=== PATIENT | male | born 1970 | race Caucasian/White ===

== ENCOUNTER 2016-07-25 06:49 | Emergency (ER) | payer OTHER ==
[~2016-07-25] VITALS: Ht 175.3 cm; Wt 86.2 kg
[~2016-07-25 06:49] MED LIST: BACTRIM DS 8001 TAB PO; BACTRIM DS TAB1 EACH PO; CLEOCIN HCL300 MG PO; KEFLEX500 M1 PO; KEFLEX500 MG PO; PERCOCET 325 MG1 TA2 PO
--- NOTE | 2016-07-25 07:49 | ED GI/GU/ABDOMINAL COMPLAINT ---
History of Present Illness General Chief Complaint: General Adult Stated Complaint: "?HIDLE HERNIA, HX HIDLE HERNIA" Source: patient, old records Exam Limitations: no limitations Vital Signs & Intake/Output Vital Signs & Intake/Output Vital Signs Date Time Temp Pulse Resp B/P Pulse O2 O2 Flow FiO2 Ox Delivery Rate 07/25 926 97.0 70 128/62 07/25 0835 97.0 78 20 144/82 96 Room Air 07/25 0709 96.5 84 18 151/90 97 Room Air Allergies Coded Allergies: No Known Allergies (10/16/15) Reconcile Medications No Known Home Medications Triage Note: 46 Y/O MALE C/O FEW WEEK HISTORY OF EPIGASTRIC PAIN; INTERMITTENT IN NATURE AND "IT COMES AND GOES BUT WHEN IT EAT IT FEELS LIKE THE FOOD GETS STUCK". PT STATES HE HAD A HX OF HIATAL HERNIA AND NISSON FUNDOPLICATION AND THIS "FEELS LIKE WHEN I WAS RECOVERING AND I WAS OVER ZEALOUS WITH EATING, THE FOOD WOULD GET STUCK". PT STATES HE CALLED DR VALLES BUT WAS UNABLE TO GET APPT UNTIL SATURDAY. DENIES OTHER COMPLAINTS. Triage Nurses Notes Reviewed? yes Onset: Gradual Duration: week(s): (2), intermittent, waxing and waning Timing: recent history Quality/Severity: aching Severity Numbers: 5 Location: epigastric Radiation: no radiation Activities at Onset: none Prior Abdominal Problems: similar symptoms (prior to hiatal hernia repair) No Modifying Factors: none Associated Symptoms: n/v x2 HPI: 46-year-old male history of asthma, hiatal hernia repair in 2013 with yohana fundoplicaton presents to the ER for evaluation complaining of 2 week history of gradual onset intermittent waxing and waning in intensity epigastric discomfort stating that he feels as though "food is getting stuck" the patient denies any competitions with the surgery up until 2 weeks ago. He denies any shortness of breath or difficulty swallowing. He denies pain currently there is no fever no chills. He states throughout the duration of his symptoms he has vomited twice denies nausea, no change in his bowel movements. He called his surgeon Dr. Valles or cannot get in to see him until next week. He denies history of abdominal surgeries otherwise. He denies tobacco or alcohol use no back pain the symptoms are nonradiating described as aching in her minute. There is no other abdominal pain no urinary symptoms no fever no chills. He is been using [id number] antacids without improvement. sx are not worse with eating or drinking. (FRIEDA LOPEZ) Past History Travel History Traveled to [place] past 21 day No Medical History Any Pertinent Medical History? 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 Psychosocial History What is your primary language Kazakh Tobacco Use: Never used Family History Hx Contributory? No (FRIEDA LOPEZ) Review of Systems Review of Systems Constitutional: Reports: see HPI. All Other Systems: Reviewed and Negative Comments Review of systems: See HPI, All other systems negative. Constitutional, no chills no fever, no malaise HEENT: No visual changes no sore throat no congestion Cardiovascular: No chest pain , no palpitation Skin, no jaundice no rashes, no change in skin Respiratory: No dyspnea no cough no sputum no hemoptysis GI: No nausea no vomiting, no diarrhea, no bloating/constipation : No dysuria Muscle skeletal: No joint pain, no back pain, no neck pain, Neurologic: No numbness , no headache Psych: No stress Heme/endocrine: No bruising no bleeding Immunology: No lymphadenopathy (FRIEDA LOPEZ) Physical Exam Physical Exam General Appearance: well developed/nourished, alert, awake Gastrointestinal: tenderness (epigastric) Comments: Well-developed well-nourished person in no acute distress HEENT: Normal EENT exam; PERRL, EOMI, HEAD is atraumatic. moist mucous membranes. Neck: Supple, normal range of motion Back: Nontender, no CVA tenderness. Full range of motion Cardiovascular: Regular rate and rhythms no murmurs rubs Respiratory: Chest nontender.There were no bony deformities, no asymmetry. No respiratory distress. Patient speaking in full complete sentences. Breath sounds clear to auscultation bilaterally: NO W/R/R Abdomen: Soft, epigastric tenderness to palpation no right upper quadrant tenderness negative Al sign nondistended, no appreciable organomegaly. Normal bowel sounds. No rebound/guarding, No appreciable enlargement of the abdominal aorta, No ascites. Extremity: No edema, full range of motion of extremities Neuro: Alert oriented x3, motor sensory normal. There were no obvious focal neurologic abnormalities. Skin: No appreciable rash on exposed skin, skin is warm and dry. No jaundice Psych: Mood and affect is normal, memory and judgment is normal. Core Measures ACS in differential dx? No Severe Sepsis Present: No Septic Shock Present: No (KIRSTIN CHRISTENSEN,FRIEDA) Progress Differential Diagnosis: AAA, appendicitis, biliary colic, bowel obstruction, colon cancer, diverticulitis, gastritis, hepatitis, hernia, inflamm bowel dis, pancreatitis, peptic ulcer, PUD/GERD, perforated viscous, SBO Plan of Care: Orders Procedure Date/time Status Saline Lock 07/25 754 Active TROPONIN LEVEL 07/25 754 Complete LIPASE 07/25 754 Complete COMPREHENSIVE METABOLIC PANEL 07/25 754 Complete CBC WITHOUT DIFFERENTIAL 07/25 754 Complete AMYLASE 07/25 754 Complete Laboratory Tests 07/25/16 0810: Anion Gap 8, Estimated GFR 55 L, BUN/Creatinine Ratio 10.7, Glucose 102 H, Calcium 9.8, Total Bilirubin 1.2, AST 25, ALT 33, Alkaline Phosphatase 71, Troponin I < 0.01, Total Protein 7.2, Albumin 3.9, Globulin 3.3, Albumin/ Globulin Ratio 1.2, Amylase 39, Lipase 88, CBC w Diff NO MAN DIFF REQ, RBC 5.55, MCV 84.4, MCH 28.4, RDW 14.3, MPV 8.5, Gran % 58.1, Lymphocytes % 22.9, Monocytes % 10.7 H, Eosinophils % 7.6 H, Basophils % 0.7, Absolute Granulocytes 3.4, Absolute Lymphocytes 1.4, Absolute Monocytes 0.6, Absolute Eosinophils 0.5, Absolute Basophils 0, PUBS MCHC 33.6 Patient denies any complaints at this time labs ordered CAT scan ordered case discussed with Dr. robb 07/25/2016 8:55:24 AM discussed the patient called his lab results to date pending CAT scan is again declining anything offered for pain as he denies any at this time patient's creatinine of 1.4 reviewed shows patient's previous kidney functions has been elevated in the past as well 07/25/2016 10:01:08 AM discussed with the patient at length all of his CT findings incidental findings need for close follow-up with his GI as well as surgery scheduled to see next Saturday. Patient is again denying any pain, I advised to continue the Prevacid, advised return anytime sooner with any concerns answered all his questions he feels comfortable to splint (KIRSTIN CHRISTENSEN,FRIEDA) Diagnostic Imaging: Viewed by Me: CT Scan. Discussed w/RAD: CT Scan. Radiology Impression: PATIENT: INDERJIT HODGES JR PRESENT AGE: 46 PATIENT ACCOUNT NO: [id number] : 70 LOCATION: [facility] ORDERING PHYSICIAN: FRIEDA CHRISTENSEN SERVICE DATE: 07/25/16 EXAM TYPE: CAT - CT ABD & PELVIS W IV CONTRAST EXAMINATION: CT ABDOMEN AND PELVIS WITH CONTRAST CLINICAL INFORMATION: Pancreatitis. Epigastric pain with hiatal hernia repair. COMPARISON: None TECHNIQUE: Multidetector volumetric imaging was performed of the abdomen and pelvis before and after the IV administration of 93 mL of Optiray 320 intravenous contrast. Sagittal and coronal reformatted images were obtained on the technologist's workstation. DLP: 469 mGy-cm. FINDINGS: LUNG BASES: The visualized lung bases are unremarkable. LIVER, GALLBLADDER, AND BILIARY TREE: The liver is normal in size, shape, and attenuation. No focal hepatic lesion or biliary ductal dilatation is present. The gallbladder is unremarkable with no evidence of radiopaque gallstones, gallbladder wall thickening, or obvious pericholecystic inflammatory changes. PANCREAS: Unremarkable. No evidence for pancreatitis. No pancreatic ductal dilatation. SPLEEN: Unremarkable. ADRENAL GLANDS: Unremarkable. KIDNEYS AND URETERS: 1.5 cm benign simple cyst in the lower pole of the right kidney. Multiple small 1 to 2 mm calcifications in both kidneys compatible small nonobstructing calculi. No hydronephrosis or hydroureter. BLADDER: Unremarkable. GASTROINTESTINAL TRACT: Appendix normal. Large bowel normal small bowel normal small hiatal hernia. Stomach otherwise normal. ABDOMINAL WALL: No significant hernia is appreciated. LYMPH NODES: Normal. VASCULAR: Minimal arterial calcification. PELVIC VISCERA: Unremarkable. OSSEOUS STRUCTURES: Unremarkable. IMPRESSION: No acute abnormality No evidence for pancreatitis. Benign simple cyst lower pole right kidney. Multiple small nonobstructing renal calculi. Small hiatal hernia. DICTATED BY: KAIT BURR MD DATE/TIME DICTATED:07/25/16911 SPEECH PATHOLOGY ASSISTANT: JV DATE/TIME TRANSCRIBED:07/25/16911 CONFIDENTIAL, DO NOT COPY WITHOUT APPROPRIATE AUTHORIZATION. <Electronically signed in Other Vendor System> SIGNED BY: KAIT BURR MD 07/25/16946 Initial ED EKG: none (FRIEDA LOPEZ) Departure Departure Time of Disposition: 956 Disposition: HOME OR SELF CARE Condition: Stable Clinical Impression Primary Impression: Hiatal hernia Secondary Impressions: Gastritis, Kidney stone, Renal cyst Referrals: REENA BANDA,MAURIZIO ERWIN MD,ANA M (PCP/Family) Additional Instructions: Follow-up with Dr. 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 Bullock diet, continue with Prevacid. Return to ER anytime sooner with any concerns. Departure Forms: Customer Survey General Discharge Information Prescriptions: Current Visit Scripts No Known Home Medications (FRIEDA LOPEZ) PA/RUSSIAN HISTORY PROFESSOR Co-Sign Statement Statement: ED Attending supervision documentation- [] I saw and evaluated the patient. I have also reviewed all the pertinent lab results and diagnostic results. I agree with the findings and the plan of care as documented in the PA's/RUSSIAN HISTORY PROFESSOR's documentation. x I have reviewed the ED Record and agree with the PA's/RUSSIAN HISTORY PROFESSOR's documentation. [] Additions or exceptions (if any) to the PAs/RUSSIAN HISTORY PROFESSOR's note and plan are summarized below: [] (GIUSEPPE BANDA,ROBERT)
[2016-07-25 08:18] LABS: ABSOLUTE BASOPHIL COUNT 0 /CUMM (0.0-0.2); ABSOLUTE EOSINOPHIL COUNT 0.5 /CUMM (0.0-0.7); ABSOLUTE GRANULOCYTE CT 3.4 /CUMM (1.4-6.5); ABSOLUTE LYMPH COUNT 1.4 /CUMM (1.2-3.4); ABSOLUTE MONOCYTE COUNT 0.6 /CUMM (0.10-0.60); BASOPHIL % 0.7 % (0.0-2.0); EOSINOPHIL % 7.6 % (0-5); GRANULOCYTE % 58.1 % (42.2-75.2); HEMATOCRIT 46.8 % (42-52); MEAN CORPUSCULAR HGB 28.4 PG (27.0-31.0); MEAN CORPUSCULAR HGB CONC 33.6 G/DL (33.0-37.0); MEAN CORPUSCULAR VOLUME 84.4 FL (80.0-94.0); MEAN PLATELET VOLUME 8.5 FL (7.4-10.4); PLATELET COUNT 190 /CUMM (130-400); RBC DISTRIBUTION WIDTH 14.3 % (11.5-14.5); RED BLOOD CELL CT 5.55 /CUMM (4.70-6.10); WHITE BLOOD CELL COUNT 5.9 /CUMM (4.8-10.8)
[2016-07-25 09:27] VITALS: BP 128/62
--- NOTE | 2016-07-25 09:47 | CT SCAN REPORT ---
EXAMINATION: CT ABDOMEN AND PELVIS WITH CONTRAST CLINICAL INFORMATION: Pancreatitis. Epigastric pain with hiatal hernia repair. COMPARISON: None TECHNIQUE: Multidetector volumetric imaging was performed of the abdomen and pelvis before and after the IV administration of 93 mL of Optiray 320 intravenous contrast. Sagittal and coronal reformatted images were obtained on the technologist's workstation. DLP: 469 mGy-cm. FINDINGS: LUNG BASES: The visualized lung bases are unremarkable. LIVER, GALLBLADDER, AND BILIARY TREE: The liver is normal in size, shape, and attenuation. No focal hepatic lesion or biliary ductal dilatation is present. The gallbladder is unremarkable with no evidence of radiopaque gallstones, gallbladder wall thickening, or obvious pericholecystic inflammatory changes. PANCREAS: Unremarkable. No evidence for pancreatitis. No pancreatic ductal dilatation. SPLEEN: Unremarkable. ADRENAL GLANDS: Unremarkable. KIDNEYS AND URETERS: 1.5 cm benign simple cyst in the lower pole of the right kidney. Multiple small 1 to 2 mm calcifications in both kidneys compatible small nonobstructing calculi. No hydronephrosis or hydroureter. BLADDER: Unremarkable. GASTROINTESTINAL TRACT: Appendix normal. Large bowel normal small bowel normal small hiatal hernia. Stomach otherwise normal. ABDOMINAL WALL: No significant hernia is appreciated. LYMPH NODES: Normal. VASCULAR: Minimal arterial calcification. PELVIC VISCERA: Unremarkable. OSSEOUS STRUCTURES: Unremarkable. IMPRESSION: No acute abnormality No evidence for pancreatitis. Benign simple cyst lower pole right kidney. Multiple small nonobstructing renal calculi. Small hiatal hernia.
== END 2016-07-25 09:57 ==
LOC: ERH 06:49
PROVIDERS: Physician Assistant Medical
DX: K44.9 Diaphragmatic hernia without obstruction or gangrene (principal); K29.70 Gastritis, unspecified, without bleeding; N20.0 Calculus of kidney; N28.1 Cyst of kidney, acquired
CPT/HCPCS: 74177; Q9965

== ENCOUNTER 2016-08-15 03:29 | Inpatient (IN) | payer OTHER ==
[~2016-08-15] VITALS: Ht 175.3 cm; Wt 88.5 kg
--- NOTE | 2016-08-15 18:59 | Operative Report ---
Operative/Inv Procedure Report Surgery Date: 08/15/16 Name of Procedure: Laparoscopic converted to open redo-hiatal hernia repair with Yohana fundoplication Pre-Operative Diagnosis: Recurrent hiatal hernia Post-Operative Diagnosis: Same Failed Yohana Estimated Blood Loss: 250 Surgeon/Educational Director: REENA BANDA,MAURIZIO Ramos/Tera Lei MD Anesthesia: general endotracheal tube Operative Indication: 46 showed male presents with recurrent severe GERD with regurgitation unresponsive to medical management. He had prior laparoscopic hiatal hernia repair with Yohana fundoplication about 2 years ago. Recent imaging shows recurrence of his hiatal hernia. He requests repair Operative/Procedure Note Note: After consent is brought to the operating room laid supine. Gen. anesthesia was obtained his placed in lithotomy position. His abdomen was prepped and draped. Skin above the umbilicus was after local anesthesia and a transverse incision made through pre-existing scar. We came down the fascia and incised it sharply. Stay sutures were placed and a blunt Jackson port was placed. The peritoneum was achieved. For, 5 mm ports were placed in the right upper quadrant epigastrium and left upper quadrant after local anesthesia instilled under direct vision the camera. There were omental adhesions to the anterior abdominal wall into the liver which were taken down with Sonicision device. A self-retaining liver retractor was placed in right upper quadrant. The hiatus was fused. There were numerous dense adhesions. We began or dissection on the right crura but this was deemed to be quite difficult due to the severe adhesive disease there. I could not identify the right jo ann. So I went laterally and got the left jo ann. We took down some adhesions with Sonicision and saw what appeared to be the crura were it met the Yohana. However there wasn't really an intact Yohana that we could see. So, worked back and forth until we mobilized the area little bit. Eventually through painstaking dissection I was able to get through what appeared to be the GE junction. We placed a umbilical tape around that area and tied to itself to assist in retraction. We still couldn't identify the right jo ann. This limited the laparoscopic portion the case significantly. We then identified what appeared to be the fundus of the stomach that was herniating up into the chest. Was retracted inferiorly. We then realized that the umbilical tape actually went between the fundus and the esophagus. I attempted to dissect the fundus off of the jo ann. In doing so a small hole in the stomach was made. Continue dissection and as we did so the hole just lengthen more and more. At this point it seemed that laparoscopic repair would be futile. So I converted to open. A midline incision was made sharply and subcutaneous tissues tissues were dissected with cautery. Ardon retractor was placed. Wasn't much easier doing an open but at least I could palpate tissues. There was circumferential adhesions at the GE junction which taken down with cautery. We then got [place] drain around the proper esophagus. At this point the fundus had been completely reduced. In order to repair the hole at the take down the failed Yohana. This was fairly difficult as there were numerous adhesions of the fundus to the posterior esophagus. These were taken down with cautery. Also mobilized the greater curvature to allow better mobilization of the hiatus. Finally was able to deliver the fundus back to the left side. Hole was then closed with a running 3-0 Vicryl suture in a Lembert fashion. At this point we expect the hiatus. The hiatus was really pretty tight and couldn't be closed much more than hours he was so we left that alone. I was afraid was be too tight. 5 try to imbricated even more the majority of the failure of his symptoms was related to what appeared to be failure of the Yohana fundoplication. We reused the fundus crated at Yohana fundoplication and in doing so was able to wrap the gastrotomy repair site on the inside as to buttress it against the esophagus. This was accomplished with 3 interrupted 2-0 Vicryl sutures, 2 of which incorporated the anterior portion of the esophagus. Nasogastric tube was then placed down in the stomach. Epigastric region was irrigated normal saline. I closed the fascia with 0 Maxon sutures in a running fashion. Skin incisions closed with curt. Sterile dressings were applied. Sponge and needle counts are correct. CC: RIP BANDA,ANA M
[2016-08-15 20:24] VITALS: BP 126/70
--- NOTE | 2016-08-15 20:30 | NUR ---
NSG NOTE: RECEIVED PT FROM PACU. PT AWAKE, A/OX3, ON 2L NC, ROOM AIR @ BASELINE, NGT TO L NARE TO LWS, BLOODY OUTPUT NOTED IN TUBING, IV SITE INTACT WITH IVF INFUSING PER ORDER, MIDLINE ABD DSG INTACT WITH SCANT BLOODY DRAINAGE NOTED AND MARKED, 3 SM BANDAIDS ALSO TO ABD WITH SCANT DRAINAGE, ABD SOFT AND DISTENDED, ALPS IN PLACE, PT NPO, -FLATUS, ABSENT BS, PT DENIES PAIN, PT ORIENTED TO ROOM AND CALL GRAVES WITHIN REACH. WILL MONITOR.
--- NOTE | 2016-08-15 22:49 | Admission Core Measures ---
Acute Coronary Syndrome Inclusion Criteria ACS Diagnosis No Inpatient Core Measures LDL Reminder: If No, please order W/I first 24hr of stay Congestive Heart Failure Inclusion Criteria CHF Diagnosis No Cerebrovascular accident Inclusion Criteria CVA/TIA Diagnosis No Inpatient Core Measures Bedside Swallow Eval Reminder: If BSE failed, place ST order Antithrombotic Reminder: Order Antithrombotic Medication by end of day 2 Antithrombotic Reminder: Document Reason Antithrombotic Not ordered by end of day 2 AFIB/Flutter Reminder: If Present, add to problem list AFIB/Flutter Reminder: Order Anticoag Medication for pts with AFIB/Flutter Atherosclerosis Reminder: If Present, add to problem list LDL Reminder: If No, please order W/I first 24hr of stay PT Order Reminder: If No, please order Venous thromboembolism Inpatient Core Measures VTE Risk Factors: Age > 40, [facility] prophylaxis d/t No contraindications No VTE Pharm Prophylaxis d/t No contraindications Inclusion Criteria - Per Current guidelines, there needs to be overlap - treatment for the first 5 days of Warfarin therapy. - Parenteral Anticoagulation (IV or SC) needs to be - given along with Warfarin therapy. VTE Diagnosis No VTE Type NONE VTE Confirmed by (Test) NONE Problem List As ranked by this Provider includes Assessment & Plan 1. Status post Yohana fundoplication (without gastrostomy tube) procedure HOME MEDS Home Med List Hydrocodone/Acetaminophen (Hycet 7.5 MG-325 MG/15 Ml Soln) 7.5 MG-325 MG/15 ML SOLUTION 15-30 ML PO Q4-6H PRN PAIN
--- NOTE | 2016-08-15 22:49 | PN- General Surgery ---
Subjective Subjective: Postop check Patient is now postoperative day #0 status post revision of hiatal hernia repair. He reports no major complaints at this time. He admits to some mild discomfort, which is reasonably controlled. His biggest complaint is irritation of the NG tube and Hopson, both of which are relatively tolerable. Otherwise denies nausea, headache, dizziness, chest pain, shortness breath. No flatus as of yet. Objective Vital Signs and I&Os Vital Signs Date Time Temp Pulse Resp B/P Pulse O2 O2 Flow FiO2 Ox Delivery Rate 08/16 2023 97.7 94 18 126/70 98 Nasal 2.0L Cannula 08/15 1954 Nasal 2.0L Cannula Intake & Output 08/16 0800 08/16 0000 08/15 1600 08/15 0800 08/15 0000 08/14 1600 Intake Total Output Total Balance Patient 195 lb Weight Physical Exam: Gen.: Patient is resting, but easily arousable. No acute distress. Cardiac: Regular Pulmonary: Lungs are clear bilaterally. Abdomen: Soft and moderately distended. Midline dressing contains a few small areas of blood, but no leakage outside of the dressing border. There is mild cuate-incisional tenderness, which is expected. No bowel sounds were heard as of yet. Extremities: No significant lower extremity edema or calf tenderness are appreciated. Assessment/Plan Assessment/Plan Patient is a 46-year-old male, who is now POD #0 s/p laparoscopic converted to open revision hiatal hernia repair. Plan: -Continue nothing by mouth with NG tube to low wall suction. Continues Chloraseptic spray for NGT discomfort. -IV fluids at 125 per hour. Keep Hopson catheter in overnight for I's and O's. -CBC and electrolytes in the morning. -Pain control with intermittent Dilaudid as needed. -Zofran can be used if needed for nausea. -Subcutaneous heparin and Alps for DVT prophylaxis. -Prontonix for GI prophylaxis. -Plan for Gastrografin swallow in the morning to assess for a leak due to extensive dissection of adhesions intraoperatively. Core Measures/Miscellaneous Hopson Catheter Date In: 08/15/16 Still Needed? Yes Venous Thromboembolism VTE Risk Factors: Age > 40, Surgery VTE Contraindications: No Contraindications VTE Diagnosis: No Beta Taras Is Beta Taras a Home Med? No Antibiotics Is Patient on Antibiotics? Yes If Yes: prophylaxis
[2016-08-16 01:38] VITALS: BP 140/80
--- NOTE | 2016-08-16 02:17 | NUR ---
PT C/O ITCHING ALL OVER. NO RASH NOTED. PER PT THIS HAS HAPPENED IN THE PAST WITH PAIN MEDICATION AND WAS GIVEN ANTIHISTIMINES. SURGICAL AMPARO MARS NOTIFIED. ORDER RECEIVED FOR IV BENADRYL. WILL MEDICATE PER ORDERS.
[2016-08-16 06:56] VITALS: BP 110/80
--- NOTE | 2016-08-16 07:27 | PN- General Surgery ---
Surgical Brief Attending Note Brief Attending Note: Patient is stable following open redo Yohana fundoplication. Awaiting Gastrografin swallow. If no evidence of leak, his NG tube can be removed and he can be started on a fundoplication stage I diet. Hopson catheter can be removed when his NG out
[2016-08-16 07:57] LABS: ABSOLUTE BASOPHIL COUNT 0 /CUMM (0.0-0.2); ABSOLUTE EOSINOPHIL COUNT 0 /CUMM (0.0-0.7); ABSOLUTE GRANULOCYTE CT 15.4 /CUMM (1.4-6.5); ABSOLUTE LYMPH COUNT 0.8 /CUMM (1.2-3.4); ABSOLUTE MONOCYTE COUNT 1.6 /CUMM (0.10-0.60); BASOPHIL % 0 % (0.0-2.0); EOSINOPHIL % 0 % (0-5); GRANULOCYTE % 86.6 % (42.2-75.2); HEMATOCRIT 42.1 % (42-52); MEAN CORPUSCULAR HGB 28.3 PG (27.0-31.0); MEAN CORPUSCULAR HGB CONC 32.8 G/DL (33.0-37.0); MEAN CORPUSCULAR VOLUME 86.4 FL (80.0-94.0); MEAN PLATELET VOLUME 9.8 FL (7.4-10.4); PLATELET COUNT 134 /CUMM (130-400); RBC DISTRIBUTION WIDTH 14.6 % (11.5-14.5); RED BLOOD CELL CT 4.87 /CUMM (4.70-6.10)
[2016-08-16 09:58] LABS: WHITE BLOOD CELL COUNT 17.7 /CUMM (4.8-10.8)
--- NOTE | 2016-08-16 11:02 | RADIOLOGY REPORT ---
EXAMINATION: XR GASTROGRAFIN SWALLOW CLINICAL INFORMATION: Status post hiatal hernia revision surgery on 08/14/2016. Evaluate for contrast leak. COMPARISON: Barium swallow from 08/03/2016. TECHNIQUE: Multiple spot fluoroscopy images of the esophagus and upper abdomen were acquired during oral intake of 60 mL of a 50% dilution of Gastrografin contrast material. FINDINGS: The preprocedure KUB shows the tip of the NG tube to be located at the gastric body. Skin curt project over the upper abdomen. Atelectasis is present in the medial left lower lobe. With oral intake of Gastrografin contrast material, there was no evidence of contrast leakage from the esophagus or proximal stomach. The patient was rolled into decubitus positions and there was normal emptying of contrast from the stomach into the normal duodenum. No evidence of a residual hiatal hernia. FLUOROSCOPY TIME: 1 minute, 5 seconds NUMBER OF IMAGES: 16 IMPRESSION: Status post hiatal hernia repair. NG tube in satisfactory position, its tip located in the gastric body. No evidence of recurrent hernia or postoperative contrast leakage.
[2016-08-16 14:43] VITALS: BP 120/80
[2016-08-16 23:01] VITALS: BP 128/87
--- NOTE | 2016-08-17 07:21 | PN- General Surgery ---
See Addendum Subjective Subjective: POD #2 s/p lap converted to open revision of hiatal hernia. Resting comfortably in bed. No flatus or BM yet. Ambulating well, voiding spontaneously. Tolerating fundoplication diet stage 1 without N/V. No F/C, CP/SOB. Objective Vital Signs and I&Os Vital Signs Date Time Temp Pulse Resp B/P Pulse O2 O2 Flow FiO2 Ox Delivery Rate 08/16 2301 99.0 93 20 128/87 93 Room Air 08/16 1602 96 Room Air Room Air 08/16 1559 18 96 Room Air Room Air 08/16 1443 98.6 86 18 120/80 96 Nasal 2.0L Cannula Intake & Output 08/17 0800 08/17 0000 08/16 1600 08/16 0808/16 0000 08/15 1600 Intake Total 705 1280 1000 Output Total 1750 1850 1750 500 Balance -1045 -570 -750 -500 Intake, IV 516 549 5568 Intake, Oral 480 480 Output, 200 Gastric Drainage Output, Urine 1750 1850 1550 500 Patient 195 lb Weight Physical Exam: Gen: AAox3 in NAD Cor: S1+S2+ Lungs: CTA svetlana Abd: incisional bandages C/D/I, removed. Midline and port incision intact with curt. No drainage or surrounding erythema noted. Abdomen nontender to palpation, non distended. +BS x4 Ext: no edema or calf tenderness to svetlana lower extremities. Current Medications: Current Medications Sig/Virgilio Start time Last Medication Dose Route Stop Time Status Admin Dextrose/Sodium 1,000 ML .[id number] 08/16 1999 DC 08/16 Chloride IV 0833 Diphenhydramine HCl 25 MG Q4P PRN 08/16 0230 AC 08/17 IV 0733 Heparin Sodium 5,000 UNIT Q8 08/15 2200 AC 08/17 (Porcine) SC 0657 Hydromorphone HCl 1 MG Q4P PRN 08/16 1999 AC 08/17 IV 0733 Hydromorphone HCl 0.5 MG Q4P PRN 08/16 1999 AC 08/15 IV 2312 Ondansetron HCl 4 MG Q6P PRN 08/16 1999 AC IV Pantoprazole Sodium 40 MG DAILY 08/16 1000 AC 08/16 IV 0834 Phenol 2 SPRAY Q2P PRN 08/16 0030 AC 08/16 EXT 0143 Results Last 48 Hours of Labs: Laboratory Tests 08/16 0614 Chemistry Sodium (137 - 145 mmol/L) 136 L Potassium (3.5 - 5.1 mmol/L) 5.0 Chloride (98 - 107 mmol/L) 101 Carbon Dioxide (22 - 30 mmol/L) 25 Anion Gap (5 - 16) 9 BUN (9 - 20 mg/dL) 17 Creatinine (0.7 - 1.2 mg/dL) 1.4 H Estimated GFR (>60 ml/min) 55 L BUN/Creatinine Ratio (7 - 25 %) 12.1 Hematology CBC w Diff NO MAN DIFF REQ WBC (4.8 - 10.8 /CUMM) 17.7 H RBC (4.70 - 6.10 /CUMM) 4.87 Hgb (14.0 - 18.0 G/DL) 13.8 L Hct (42 - 52 %) 42.1 MCV (80.0 - 94.0 FL) 86.4 MCH (27.0 - 31.0 PG) 28.3 RDW (11.5 - 14.5 %) 14.6 H Plt Count (130 - 400 /CUMM) 134 MPV (7.4 - 10.4 FL) 9.8 Gran % (42.2 - 75.2 %) 86.6 H Lymphocytes % (20.5 - 51.1 %) 4.2 L Monocytes % (1.7 - 9.3 %) 9.2 Eosinophils % (0 - 5 %) 0 Basophils % (0.0 - 2.0 %) 0 L Absolute Granulocytes (1.4 - 6.5 /CUMM) 15.4 H Absolute Lymphocytes (1.2 - 3.4 /CUMM) 0.8 L Absolute Monocytes (0.10 - 0.60 /CUMM) 1.6 H Absolute Eosinophils (0.0 - 0.7 /CUMM) 0 Absolute Basophils (0.0 - 0.2 /CUMM) 0 PUBS MCHC (33.0 - 37.0 G/DL) 32.8 L Assessment/Plan Assessment/Plan A: POD #2 s/p lap converted to open hiatal hernia revision; AVSS. Plan: Await increase in bowel function. Continue stage 1 fundoplication diet. F/U am labwork. ? discharge home today. Will discuss with Dr. Willson. Core Measures/Miscellaneous Hopson Catheter Date In: 08/15/16 Venous Thromboembolism VTE Risk Factors: Age > 40, Surgery VTE Contraindications: No Contraindications VTE Diagnosis: No Beta Taras Is Beta Taras a Home Med? No Antibiotics Is Patient on Antibiotics? Yes If Yes: prophylaxis
[2016-08-17 07:47] VITALS: BP 119/84
[2016-08-17 08:40] LABS: ABSOLUTE BASOPHIL COUNT 0 /CUMM (0.0-0.2); ABSOLUTE EOSINOPHIL COUNT 0 /CUMM (0.0-0.7); ABSOLUTE GRANULOCYTE CT 10.9 /CUMM (1.4-6.5); ABSOLUTE LYMPH COUNT 1.6 /CUMM (1.2-3.4); ABSOLUTE MONOCYTE COUNT 1.5 /CUMM (0.10-0.60); BASOPHIL % 0.3 % (0.0-2.0); EOSINOPHIL % 0.2 % (0-5); GRANULOCYTE % 77.4 % (42.2-75.2); MEAN CORPUSCULAR HGB 28.2 PG (27.0-31.0); MEAN CORPUSCULAR HGB CONC 32.9 G/DL (33.0-37.0); MEAN CORPUSCULAR VOLUME 85.8 FL (80.0-94.0); MEAN PLATELET VOLUME 9.9 FL (7.4-10.4); PLATELET COUNT 140 /CUMM (130-400); RBC DISTRIBUTION WIDTH 14.8 % (11.5-14.5); RED BLOOD CELL CT 4.54 /CUMM (4.70-6.10); WHITE BLOOD CELL COUNT 14.1 /CUMM (4.8-10.8)
[2016-08-17 14:35] VITALS: BP 126/86
--- NOTE | 2016-08-17 16:48 | Patient Discharge Instructions ---
Discharge Instructions General Discharge Information You were seen/treated for: hiatal hernia You had these procedures: open hiatal hernia repair Watch for these problems: increased pain, redness, drainage, fever greater than 101F Call Surgeon to remove: Curt No bath, but you may shower: Yes Other wound care: No need for dressing changes. You may shower. Pat curt dry. Do not rub it as it will hurt. Diet Continue normal diet: No Recommended Diet: please follow fundoplication diet as you have been instructed Activity Full Activity/No Limits: Yes Acute Coronary Syndrome Inclusion Criteria At DC or during hospital stay patient has or had the following: ACS DIAGNOSIS No Discharge Core Measures Meds if any: Prescribed or Continued at Discharge Meds if any: NOT Prescribed or Continued at Discharge Congestive Heart Failure Inclusion Criteria At DC or during hospital stay patient has or had the following: CHF DIAGNOSIS No Discharge Core Measures Meds if any: Prescribed or Continued at Discharge Meds if any: NOT Prescribed or Continued at Discharge Cerebrovascular accident Inclusion Criteria At DC or during hospital stay patient has or had the following: CVA/TIA Diagnosis No Discharge Core Measures Meds if any: Prescribed or Continued at Discharge Meds if any: NOT Prescribed or Continued at Discharge Venous thromboembolism Inclusion Criteria VTE Diagnosis No VTE Type NONE VTE Confirmed by (Test) NONE Discharge Core Measures - Per Current guidelines, there needs to be overlap - treatment for the first 5 days of Warfarin therapy. - If discharged on Warfarin prior to 5 days of - overlap therapy, the patient will need to be - assessed for post discharge needs including - *Post discharge parental anticoagulation - *Warfarin and/or parental anticoagulation education - *Follow up date to check INR post discharge At least 5 days overlap therapy as Inpatient No Meds if any: Prescribed or Continued at Discharge Note: Overlap Therapy is Warfarin and Anticoagulant Meds if any: NOT Prescribed or Continued at Discharge
[2016-08-17 22:36] VITALS: BP 143/90
[2016-08-18 07:08] VITALS: BP 136/78
--- NOTE | 2016-08-18 08:12 | PN- General Surgery ---
See Addendum Subjective Subjective: Patient reporting bowel movement overnight and subsequent flatus. States that he was slightly straining for bm and felt some nausea at the time but did not vomit. Other dunaway in general denies nausea and vomitting. He denies chest pain. Objective Vital Signs and I&Os Vital Signs Date Time Temp Pulse Resp B/P Pulse O2 O2 Flow FiO2 Ox Delivery Rate 08/18 0708 97.1 84 18 136/78 95 Room Air 08/17 2236 97.3 86 18 143/90 95 Room Air 08/17 1438 18 93 Room Air Room Air 08/17 1435 97.9 78 20 126/86 91 Intake & Output 08/18 1600 08/18 0800 08/18 0000 08/17 1600 08/17 0800 08/17 0000 Intake Total 240 240 800 705 Output Total 500 213 1429 Balance 240 240 -50 -350 -1045 Intake, IV 225 Intake, Oral 240 240 800 480 Number Bowel Movements Output, Urine 806 067 2598 Physical Exam: General: Alert and oriented x3, no acute distress Cardiac: RRR, s1s2 Pulmonary: Normal respiratory effort, bilateral lung sounds CTA Abdomen: Soft distension, cuate-incisional tenderness, skin edges well approximated, no excessive surrounding erythema Extremities: Moves all extremities, distal sensations intact. Motor intact. Skin warm and well perfused. No peripheral edema. bilateral calves soft and non -tender. Assessment/Plan Assessment/Plan This is a 46 year old male, POD 3, s/p lap to open hiatal hernia repair -D/C IV pain medications, patient has yet to take po pain meds -Await response to oral pain meds -If tolerating pain, d/c to home on stage 1 diet -Will d/w Dr. Willson Core Measures/Miscellaneous Hopson Catheter Date In: 08/15/16 Venous Thromboembolism VTE Risk Factors: Age > 40, Surgery VTE Contraindications: No Contraindications VTE Diagnosis: No Beta Taras Is Beta Taras a Home Med? No Antibiotics Is Patient on Antibiotics? Yes If Yes: prophylaxis
[2016-08-18 09:57] LABS: ABSOLUTE BASOPHIL COUNT 0 /CUMM (0.0-0.2); ABSOLUTE EOSINOPHIL COUNT 0 /CUMM (0.0-0.7); ABSOLUTE GRANULOCYTE CT 8.1 /CUMM (1.4-6.5); ABSOLUTE LYMPH COUNT 1.3 /CUMM (1.2-3.4); ABSOLUTE MONOCYTE COUNT 1.4 /CUMM (0.10-0.60); BASOPHIL % 0.2 % (0.0-2.0); EOSINOPHIL % 0.2 % (0-5); GRANULOCYTE % 75.1 % (42.2-75.2); MEAN CORPUSCULAR HGB 28.1 PG (27.0-31.0); MEAN CORPUSCULAR HGB CONC 32.9 G/DL (33.0-37.0); MEAN CORPUSCULAR VOLUME 85.6 FL (80.0-94.0); MEAN PLATELET VOLUME 9.6 FL (7.4-10.4); PLATELET COUNT 142 /CUMM (130-400); RBC DISTRIBUTION WIDTH 14.8 % (11.5-14.5); RED BLOOD CELL CT 4.79 /CUMM (4.70-6.10); WHITE BLOOD CELL COUNT 10.8 /CUMM (4.8-10.8)
--- NOTE | 2016-08-18 10:14 | NUR ---
1000: PT BECAME NAUSEAS; ADMINISTERED ZOFRAN; KUSUM SANTIZO MADE AWARE; WILL CONTINUE TO MONITOR.
[2016-08-18 15:33] VITALS: BP 130/100
[2016-08-18] MEDS ORDERED: HYCET 7.5 MG-3473 ML PO (16:49)
--- NOTE | 2016-08-29 07:55 | Surgical Discharge Summary ---
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 L SHOULDER REPAIR, Open Yohana Fundoplication(Redo) Psychosocial History Where Do You Live? Home Who Do You Live With? Family What is Your Primary Language? Togolese Review of Systems: Not assessed at discharge Hospital Course Course Attending Physician: MAURIZIO VALLES MD Primary Care Physician: RIP BANDA,[facility] Course: Patient was admitted to surgical service after undergoing a laparoscopic converted to open redo Yohana fundoplication. The following morning underwent Gastrografin swallow which showed no evidence of leak. His nasogastric tube was discontinued and he started on a fundoplication diet. 2 days later he was discharged home. Allergies: Coded Allergies: No Known Drug Allergies (NONE 08/16/16) Uncoded Allergies: ENVIRONMENTAL ALLERGIES (Intermediate, NASAL CONGESTION 08/09/16) Significant Procedures: Laparoscopic converted to open redo Yohana fundoplication Disposition Summary Disposition Principal Diagnosis: GERD Additional Diagnosis: Hiatal hernia Discharge Disposition: home or self care Discharge Instructions General Discharge Information Code Status: Full Code Patient's Diet: Fundoplication Patient's Activity: No lifting Follow-Up Instructions/Appts: 2 weeks Medications at Discharge Discharge Medications: Start taking the following new medications: Hydrocodone/Acetaminophen (Hycet 7.5 MG-325 MG/15 Ml Soln) 7.5 MG-325 MG/15 ML SOLUTION 15-30 Milliliters ORAL Q4-6H as needed for PAIN Qty = 540 No Refills
== END 2016-08-18 18:13 | DRG 328 ==
LOC: ENRESERVDT → ENRESERVTM → STS 03:29 → PACUH 14:35 → 2NB 14:35 → PACUH 14:35 → 2NB 19:43
PROVIDERS: Nurse Practitioner; Physician Assistant Surgical; ADMIT Surgery
DX: K44.9 Diaphragmatic hernia without obstruction or gangrene (principal)
CPT/HCPCS: 2NBP; 36415; 74230; 82436; 87086; J0131; J0690; J1170; J1200; J1644; J2405; J7042; Q2036

== ENCOUNTER 2017-06-05 22:21 | Emergency (ER) | payer OTHER ==
[~2017-06-05] VITALS: Ht 175.3 cm; Wt 88.5 kg
[~2017-06-05 22:21] MED LIST changes: +AMOXICILLIN875 M1 PO; +HYCET 7.5 MG-3473 ML PO; +NAPROXEN500 M2 PO; +PERCOCET 7.5-31 EACH PO
--- NOTE | 2017-06-06 00:22 | ED GI/GU/ABDOMINAL COMPLAINT ---
History of Present Illness General Chief Complaint: General Adult Stated Complaint: "HARD MASS ON LOWER ABD" PER PT Source: patient Exam Limitations: no limitations Vital Signs & Intake/Output Vital Signs & Intake/Output Vital Signs Date Time Temp Pulse Resp B/P B/P Pulse O2 O2 Flow FiO2 Mean Ox Delivery Rate 06/06 0126 98.9 82 18 146/92 97 Room Air 06/06 0019 97 Room Air 06/05 2229 100.0 105 18 151/99 97 Room Air ED Intake and Output 06/06 0000 06/05 1200 Intake Total Output Total Balance Patient 195 lb Weight Weight Reported by Patient Measurement Method Allergies Coded Allergies: No Known Drug Allergies (NONE 08/16/16) Uncoded Allergies: ENVIRONMENTAL ALLERGIES (Intermediate, NASAL CONGESTION 08/09/16) Reconcile Medications Amoxicillin 875 MG TABLET 1 TAB PO BID cellulitis Amoxicillin/Clavulanate Potass (Amox-Clav 875-125 MG Tablet) 875 MG-125 MG TABLET 1 TAB PO BID Abscess Naproxen 500 MG TABLET 1 TAB PO BID PAIN/INFLAMMATION (Reported) Oxycodone HCl/Acetaminophen (Percocet 7.5-325 MG Tablet) 7.5 MG-325 MG TABLET 1-2 TAB PO Q4-6H PRN PAIN (Reported) Sulfamethoxazole/Trimethoprim (Bactrim Ds Tablet) 800 MG-160 MG TABLET 1 TAB PO BID cellulitis Sulfamethoxazole/Trimethoprim (Bactrim Ds Tablet) 800 MG-160 MG TABLET 1 TAB PO BID abscess Triage Note: PT FROM HOME C/O ABCESS TO LEFT GROIN AREA. PT STATES HX OF MRSA AND KNOWN TO HAVE ABCESSES IN THE PAST. PT STATES "I WAITED FOR IT TO GO AWAY, MY SQUEEZED IT AND A LITTLE PUS CAME OUT, BUT NOTHING MUCH" PT STATED THE ONLY REASON HE CAME IN WAS FOR HIS SPIKED FEVER. FEBRILE IN TRIAGE 100.0. PT DENIES SELF MEDICATING WITH ANYTHING PRIOR TO ARRIVAL. PT STATES CHILLS SINCE LAST NIGHT. PTS BP ELEVATED IN TRIAGE 151/99. PT HAS EDENILSON, RAISED, WARM TO TOUCH ABCESS IN LEFT GROIN AREA. Triage Nurses Notes Reviewed? yes HPI: PATIENT REPORTS 2 DAYS AGO HE HAD A LEFT GROIN PIMPLE THAT PROGRESSIVELY INCREASED IN SIZE. SMALL AMOUNTS OF WHITISH COLORED DISCHARGE. TODAY HE FELT CHILLS, FEVER T: 101.3. DID NOT TAKE ANYTHING TO RELIEVE IT. DENIES NAUSEA, VOMITING. GET ABSCESSES MULTIPLE TIMES A YEAR BUT USUALLY DOES NOT REQUIRE DRAINAGE. REPORTS HE WAS AT [facility] AND DR GAVE HIM A NASAL CREAM FOR MRSA. HISTORY OF MRSA AFTER YOHANA FUNDOPLICATION ABOUT 3 YRS AGO. DENIES ANY RECENT ANTIBIOTIC USE, TRAUMA, SHAVING IN AREA, PARESTHESIAS, WEAKNESS, URINARY OR BOWEL SYMTPOMS, RECENT TRAVEL. SON HAS A COUGH, NO OTHER SICK CONTACTS. (Hugo Avila MD) Onset: Gradual Duration: day(s): (2) Timing: recent history Location: LEFT GROIN Activities at Onset: none No Modifying Factors: none Associated Symptoms: fever/chills (Bryan BANDA,Sylvia) Past History Travel History Traveled to [place] past 21 day No Medical History Any Pertinent Medical History? 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 L SHOULDER REPAIR Open Yohana Fundoplication(Redo) Psychosocial History Who do you live with Family What is your primary language Lithuanian Tobacco Use: Never used ETOH Use: occasional use Family History Hx Contributory? No (Hugo Avila MD) Review of Systems Review of Systems Constitutional: Reports: see HPI. (Hugo Avila MD) Physical Exam Physical Exam General Appearance: well developed/nourished, no apparent distress, alert, awake Head: atraumatic, normal appearance Eyes: Bilateral: normal appearance, PERRL, EOMI. Ears, Nose, Throat, Mouth: hearing grossly normal Neck: normal inspection Respiratory: normal breath sounds, lungs clear Cardiovascular: regular rate/rhythm Gastrointestinal: normal bowel sounds, soft, L groin tenderness Extremities: normal range of motion Skin: L groin erythema, hard abscess , warmth with bloody discharge. No flunctuation Core Measures ACS in differential dx? No Sepsis Present: No Sepsis Focused Exam Completed? No (Hugo Avila MD) Physical Exam Male Genitals: normal genitalia Neurologic/Psych: no motor/sensory deficits, awake, alert, oriented x 3 Diagram Body Front & Back 1) ABSCESS/CELLULITIS (Sylvia Adams MD) Progress Differential Diagnosis: orchitis, prostatitis Plan of Care: Orders Procedure Date/time Status TRUNK AREA CULTURE 06/06 99 Active Laboratory Tests 06/06/17 0025: Sodium Cancelled, Potassium Cancelled, Chloride Cancelled, Carbon Dioxide Cancelled, Anion Gap Cancelled, BUN Cancelled, Creatinine Cancelled, BUN/ Creatinine Ratio Cancelled, CBC w Diff Cancelled, WBC Cancelled, RBC Cancelled, Hgb Cancelled, Hct Cancelled, MCV Cancelled, MCH Cancelled, RDW Cancelled, Plt Count Cancelled, MPV Cancelled, PUBS MCHC Cancelled Microbiology 06/06 54 TRUNK: Culture & Sensitivity - RECD 06/06 54 TRUNK: Gram Stain - RECD Initial ED EKG: none (Hugo Avila MD) Differential Diagnosis: ABSCESS, CELLULITIS, INFECTED HAIR FOLLICLE (Sylvia Adams MD) Departure Departure Disposition: HOME OR SELF CARE Condition: Stable Clinical Impression Primary Impression: Abdominal wall abscess Referrals: Damian Frazier MD (PCP/Family) Departure Forms: Customer Survey General Discharge Information Prescriptions: Current Visit Scripts Amoxicillin/Clavulanate Potass (Amox-Clav 875-125 MG Tablet) 1 TAB PO BID #14 TAB Sulfamethoxazole/Trimethoprim (Bactrim Ds Tablet) 1 TAB PO BID #14 TAB Resident Co-Sign Statement Statement: ED Attending supervision documentation- [] I saw and evaluated the patient. I have also reviewed all the pertinent lab results and diagnostic results. I agree with the findings and the plan of care as documented in the Resident's documentation. [] I have reviewed the ED Record and agree with the Resident's documentation. [] Additions or exceptions (if any) to the Resident's note and plan are summarized below: [] (Hugo Avila MD) Departure Time of Disposition: 0118 Additional Instructions: Return to the ED in 2 days to re-evaluate abdominal abscess. If symptoms worsen come back to the ED immediately Complete your antibiotic regimen Resident Co-Sign Statement Statement: ED Attending supervision documentation- [X] I saw and evaluated the patient. I have also reviewed all the pertinent lab results and diagnostic results. I agree with the findings and the plan of care as documented in the Resident's documentation. [X] I have reviewed the ED Record and agree with the Resident's documentation. [] Additions or exceptions (if any) to the Resident's note and plan are summarized below: [] (Bryan BANDA,Sylvia) Procedures Incision and Drainage I & D Procedure: Yes: betadine prep, sterile drapes applied, sterile dressing applied. (Margarita BANDA,[facility]) Incision and Drainage Site: LEFT GROIN Blade Size: 10 Progress: PATIENT TOLERATED PROCEDURE WELL, CULTURE SENT (Sylvia Adams MD)
[2017-06-06] MEDS ORDERED: BACTRIM DS TAB1 EACH PO (01:14)
[2017-06-06] MEDS ORDERED: AMOX-CLAV 875-1 EACH PO (01:14)
[2017-06-06 01:26] VITALS: BP 146/92
== END 2017-06-06 01:26 ==
LOC: ERH 22:21
DX: L02.211 Cutaneous abscess of abdominal wall (principal)
CPT/HCPCS: 82436; 87070

== ENCOUNTER 2017-06-07 12:40 | Emergency (ER) | payer OTHER ==
[~2017-06-07] VITALS: Ht 175.3 cm; Wt 88.5 kg
[~2017-06-07 12:40] MED LIST changes: +AMOX-CLAV 875-1 EACH PO
[2017-06-07 12:54] VITALS: BP 116/81
--- NOTE | 2017-06-07 14:07 | ED ANIMAL BITE/WOUND CHECK ---
History of Present Illness General Chief Complaint: Suture Removal/Wound Recheck Stated Complaint: WOUND CHECK Source: patient, old records Exam Limitations: no limitations Vital Signs & Intake/Output Vital Signs & Intake/Output Vital Signs Date Time Temp Pulse Resp B/P B/P Pulse O2 O2 Flow FiO2 Mean Ox Delivery Rate 06/07 1254 97.8 80 20 116/81 96 Room Air Allergies Coded Allergies: No Known Drug Allergies (NONE 08/16/16) Uncoded Allergies: ENVIRONMENTAL ALLERGIES (Intermediate, NASAL CONGESTION 08/09/16) Reconcile Medications Amoxicillin 875 MG TABLET 1 TAB PO BID cellulitis Amoxicillin/Clavulanate Potass (Amox-Clav 875-125 MG Tablet) 875 MG-125 MG TABLET 1 TAB PO BID Abscess Naproxen 500 MG TABLET 1 TAB PO BID PAIN/INFLAMMATION (Reported) Oxycodone HCl/Acetaminophen (Percocet 7.5-325 MG Tablet) 7.5 MG-325 MG TABLET 1-2 TAB PO Q4-6H PRN PAIN (Reported) Sulfamethoxazole/Trimethoprim (Bactrim Ds Tablet) 800 MG-160 MG TABLET 1 TAB PO BID cellulitis Sulfamethoxazole/Trimethoprim (Bactrim Ds Tablet) 800 MG-160 MG TABLET 1 TAB PO BID abscess Triage Note: WOUND CHECK LOWER ABDOMINAL WALL Triage Nurses Notes Reviewed? yes Onset: Gradual Duration: day(s): (2), better, continues in ED Timing: single episode today Injury Environment: home Is Injury an Animal Bite? No No Modifying Factors: none HPI: 47-year-old male past medical history of asthma presents for an abscess recheck. Patient was seen here 2 days ago and had an incision and drainage of an abscess to his left lower abdominal wall. The abscess was packed and patient was instructed to return for a wound check. Patient has been taking as directed. He feels like the wound is healing well. He denies any fevers discharge worsening pain swelling or spreading redness. (Kelby Hoang) Past History Travel History Traveled to [place] past 21 day No Medical History Any Pertinent Medical History? 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 L SHOULDER REPAIR Open Yohana Fundoplication(Redo) Psychosocial History Who do you live with Family What is your primary language Spanish Tobacco Use: Never used ETOH Use: occasional use Illicit Drug Use: denies illicit drug use Family History Hx Contributory? No (Kelby Hoang) Review of Systems Review of Systems Constitutional: Reports: no symptoms. EENTM: Reports: no symptoms. Respiratory: Reports: no symptoms. Cardiovascular: Reports: no symptoms. GI: Reports: no symptoms. Genitourinary: Reports: no symptoms. Musculoskeletal: Reports: no symptoms. Skin: Reports: see HPI (ABSCESS). Neurological/Psychological: Reports: no symptoms. Hematologic/Endocrine: Reports: no symptoms. Immunologic/Allergic: Reports: no symptoms. All Other Systems: Reviewed and Negative (Kelby Hoang) Physical Exam Physical Exam General Appearance: well developed/nourished, no apparent distress, alert, awake Head: atraumatic, normal appearance Eyes: Bilateral: normal appearance, EOMI. Ears, Nose, Throat: hearing grossly normal Neck: normal inspection, supple, full range of motion Respiratory: no respiratory distress Peripheral Pulses: 2+ radial (R), 2+ radial (L) Gastrointestinal: normal bowel sounds, soft, non-tender, no organomegaly Back: normal inspection, normal range of motion Extremities: normal range of motion Neurologic/Psych: no motor/sensory deficits, awake, alert, oriented x 3 Skin: intact, normal color, warm/dry, PATIENT HAS A PACKED ABSCESS THIS IS A 30 BEEN TRAINED TO THE LEFT LOWER ABDOMINAL WALL. pACKING WAS REMOVED. tHERE IS A LARGE ABSCESS POCKET. nO DISCHARGE. tHERE IS SURROUNDING ERYTHEMA AND EDEMA. eRYTHEMA APPEARS LESSENED FROM PREVIOUS. nO FOCAL FLUCTUANT AREAS (Kelby Hoang) Progress Differential Diagnosis: abscess, cellulitis, PERITONITIS Plan of Care: Patient seen and evaluated. An incision and drainage to the left lower abdominal wall abscess. It appears to be healing well. Packing was removed the abscess pocket is open, packing was not reinserted. A lorri was made around the area of erythema track spread. Advised patient to continue antibiotics full course. Culture still pending. Return in another 2 or 3 days for wound check. Discussed return precautions return sooner with any concerns. (Kelby Hoang) Departure Departure Disposition: HOME OR SELF CARE Condition: Stable Clinical Impression Primary Impression: Abscess re-check Referrals: Damian Frazier MD (PCP/Family) Additional Instructions: Keep the area clean and dry. Continue antibiotics as directed for the full course. Return to the emergency department in 2 or 3 days for another wound check. Return sooner with spreading redness worsening pain fever or any other concerns. Departure Forms: Customer Survey General Discharge Information (Kelby Hoang) PA/DITCH TENDER Co-Sign Statement Statement: ED Attending supervision documentation- [] I saw and evaluated the patient. I have also reviewed all the pertinent lab results and diagnostic results. I agree with the findings and the plan of care as documented in the PA's/DITCH TENDER's documentation. [x] I have reviewed the ED Record and agree with the PA's/DITCH TENDER's documentation. [] Additions or exceptions (if any) to the PAs/DITCH TENDER's note and plan are summarized below: [] (Sathish Vyas DO
== END 2017-06-07 14:34 ==
LOC: ERH 12:40
DX: Z48.00 Encounter for change or removal of nonsurgical wound dressing (principal)